=== PATIENT | male | born 1980 | race Caucasian/White ===

== ENCOUNTER 2025-02-22 02:55 | Emergency (ER) | payer BC, SELFPAY ==
[2025-02-22 02:59] VITALS: BP 170/103
[2025-02-22 03:11] VITALS: BMI 35.3
--- NOTE | 2025-02-22 03:42 | ED.GENMED ---
History of Present Illness
General
Chief Complaint: Eye Problems
Source: patient
Exam Limitations: none
Time Seen by Provider: 02/22/25 03:08
Nursing documentation reviewed up to this point in time: agreed with
History of Present Illness
History of Present Illness:
44-year-old male presenting with concerns of right sided eye irritation starting yesterday. 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 Has had some itchiness and pain. Denies significant change in vision.
Review of Systems
Review of Systems
Allergies reviewed?: Yes
All Other Systems: ROS reviewed and negative except as documented in HPI and ROS
Phy Exam
Physical Exam
Physical Exam:
GENERAL: Alert , in no apparent distress
EYE: Right cornea at the 2:00 portion with metal foreign body with rust ring, pupils equal and reactive
NECK: Supple, no significant adenopathy.
ENT: o/p clr, mmm.
CARDIAC: Regular rate and rhythm .
LUNGS: Clear breath sounds bilaterally, no acute respiratory distress, no wheezes/rales/rhonchi
ABDOMEN: Soft, without focal tenderness, no r/g, no cvat
NEUROLOGICAL: Alert and oriented, no focal neuro deficits
SKIN: Warm and dry, skin intact.
MUSCULOSKELETAL: No edema, well perfused.
PSYCH: Normal and appropriate interaction.
Course
Orders/Labs/Results
Orders:
Orders
02/22/25 03:29
Tetracaine HCl [Tetracaine 0.5% Ophthalmic Solution] 1 drop .ROUTE .STK-MED ONE
02/22/25 03:42
Erythromycin (Ilotycin) [Erythromycin 0.5% Ophthalmic Ointment] See Dose Instructions OPHTH NOW STA
02/22/25 03:45
Visual Acuity- Treatment ONCE
02/22/25 03:48
Tetanus/Diphth/Acelpertussis [Adacel] 0.5 ml IM .ONCE ONE
Vital Signs
Initial and Last Documented VS:
Initial Vital Signs
Temp Pulse Resp BP Pulse Ox
97.8 F 63 22 170/103 99
02/22/25 02:59 02/22/25 02:59 02/22/25 02:59 02/22/25 02:59 02/22/25 02:59
Last Documented Vital Signs
Temp Pulse Resp BP Pulse Ox
97.8 F 63 22 170/103 99
02/22/25 02:59 02/22/25 02:59 02/22/25 02:59 02/22/25 02:59 02/22/25 03:45
Procedures
Eye Procedures
Anesthesia: other (Tetracaine)
Conjuctival foreign body removal was superficial- removed by: other (Pinpoint sized metal foreign body removed with 22-gauge needle. Rust ring remained)
Removal of corneal foreign body with: slit lamp and simple removal
Foreign body removal was: incomplete (Rust ring remained)
After removal was there a corneal abrasion?: no corneal damage noted
MDM/Problems Addressed
MDM/Problems Addressed:
44-year-old male presenting to the emergency department with metal foreign body to the right 2:00 portion of the cornea. No significant change in vision otherwise eye examination without emergent findings. Piece of metal was removed however there
was a remaining rust ring. He will need close follow-up with ophthalmology for further treatment with bur. TDAP given. Also supplied erythromycin eye ointment.
*Pulse Oximetry
SaO2: 99
Oxygen Mode of Delivery: Room air
Patient hypoxic: no (99)
*Critical Care Note
Total Time (30-74mins, 75-104mins- exclusive of procedures): Not Applicable
ED Attending Note
-
Portions of this chart may have been created with voice recognition software.� Occasional wrong word or��sound alike� substitutions may have occurred due to the inherent limitations of voice recognition software.
Discharge Plan
Departure
Patient Disposition: Home (Routine Discharge)
Date of Disposition: 02/22/25
Time of Disposition: 03:47
Patient with high blood pressure during this ER visit?: No
Condition: Good
Covid-19: Not Applicable
Discharge Problem:
Eye foreign body
Instructions: Foreign Body in Eye (DC)
Referrals:
Louie Ying MD [Active, Ophthalmology] - Tomorrow
Activity Restrictions/Additional Instructions:
You came to the emergency department today with concerns of irritation to your eye. Found have a small metal foreign body. The majority of metal was removed however there was a remaining rust ring that you will need to have very close follow-up
with ophthalmology to have completely removed. Return for any worsening, new or concerning symptoms. Please use the antibiotic ointment in the meantime.
Interventions
Interventions:
*Risk Screen - Suicide Last Done: 02/22/25 03:11
*General Assessment Last Done: 02/22/25 03:11
*Neglect/Abuse Screening Last Done: 02/22/25 03:11
*ED- Fall Risk Assessment Last Done: 02/22/25 03:11
*ED COVID-19 Vaccine History Last Done: 02/22/25 03:11
*ED Influenza Vaccine History Last Done: 02/22/25 03:11
Discharge Date and Time
Print Language: CZECH
[2025-02-22] MEDS: ERYTHROMYCIN 0.5% OPHTHALMIC OINTMENT 1 APPLIC OPHTH (03:55)
[2025-02-22] MEDS: ADACEL 0.5 ML IM (03:55)
== END 2025-02-22 04:16 | disposition home or self-care (01) ==
LOC: EMR 02:55
PROVIDERS: EMERGENCY PHYSICIAN Student in an Organized Health Care Education/Training Program; FAMILY PHYSICIAN Physician Assistant Medical
DX: T15.01XA Foreign body in cornea, right eye, initial encounter (principal); W44.9XXA Unspecified foreign body entering into or through a natural orifice, initial encounter; Z23 Encounter for immunization
CPT/HCPCS: 99282; 10120; 90471; 90715